=== PATIENT | male | born 1970 | race Caucasian/White ===

== ENCOUNTER 2021-03-21 08:53 | Emergency (ER) | payer BC, SELFPAY ==
[2021-03-21 09:05] VITALS: BP 128/86; PULSE 72; RESP 18; TEMP 37.3; O2SAT 96; BMI 28.0
--- NOTE | 2021-03-21 09:35 | ED_ITS ---
HPI - General Adult General Chief complaint: General Medical Stated complaint: ?inf on face Time Seen by Provider: 03/21/21 09:33 Source: patient Mode of arrival: ambulatory Limitations: no limitations History of Present Illness HPI narrative: 50-year-old male came in for evaluation of possible facial cellulitis. Patient was seen and evaluated at an Urgent Care was sent to the ED for possible facial infection, patient has no dental complaints, no sinus patient, patient was complaining of fever and chills last night. Related Data Previous Rx's Medication Instructions Recorded cephalexin 750 mg capsule (Keflex) 500 mg PO BID #14 cap 03/21/21 sulfamethoxazole 800 1 tab PO BID #14 tab 03/21/21 mg-trimethoprim 160 mg tablet (Bactrim DS) Allergies Allergy/AdvReac Type Severity Reaction Status Date / Time doxycycline Allergy Rash Verified 03/21/21 09:36 Review of Systems Review of Systems: all other systems are reviewed and are negative Constitutional: Reports as per HPI and Reports no additional constitutional complaints Eyes: Reports as per HPI and Reports no additional eye complaints Reports system reviewed and no additional complaints, except as documented Cardiovascular: Reports as per HPI and Reports no additional cardiovascular complaints Respiratory: Reports as per HPI and Reports no additional respiratory complaints Gastrointestinal: Reports as per HPI and Reports no additional gastrointestinal complaints Genitourinary: Reports no additional female genitourinary complaints Musculoskeletal: Reports no additional musculoskeletal complaints Skin/Breast: Reports system reviewed and no additional complaints, except as docu Psychiatric: Reports no additional psychiatric complaints Endocrine: Reports no additional endocrine complaints Hematologic/Lymphatic: Reports no additional hematologic/lymphatic complaints Allergic/Immunologic: Reports no additional allergic/immunologic complaints Reports system reviewed and no additional complaints, except as documented and Reports Abnormal speech present FOR[facility] Past Medical History Medical History (Updated 03/21/21 @ 09:38 by Eloy Madrigal MD) No known health problems Social History Social History Advance Directives: No Advance Directives Information Provided: No Physical Exam Vital Signs: Vital Signs: Last Vital Signs Temp 99.2 F 03/21/21 09:05 Pulse 72 03/21/21 09:05 Resp 18 03/21/21 09:05 BP 128/86 03/21/21 09:05 Pulse Ox 96 03/21/21 09:05 Body Mass Index 28.0 vital signs have been reviewed as appeared to be correct. Blood pressure normal. Heart rate normal. Respiration rate normal. Temperature normal. Oxygen saturation normal. Appearance: Alert. Oriented X3. No acute distress. Head: Normal external exam. Normocephalic. Atraumatic. No Ott signs noted. No raccoon eyes noted Eyes: PERRLA. EOMI. Conjunctiva and sclera normal. Eyelids normal. ENT: TM's Normal. Pharynx normal. Uvula midline. Moist mucous membranes. No trismus noted. No drooling noted. No muffled voice noted. Neck: Normal inspection. Neck supple. FROM. No adenopathy. Thyroid Normal. No meningeal signs. No neck mass noted. CVS: Normal heart rate and rhythm. Heart sound normal. No murmurs noted. Pulses normal throughout. Respiratory: No respiratory distress. Painless inspiration. Breath sounds normal. No wheezes/rales/rhonchi noted. Chest nontender. No accessory muscle usage noted or decreased air movement noted. Abdomen: Soft and nontender. Bowel sounds normal in all 4 quadrants. No distention noted. No organomegaly noted. No visible injury noted. Back: No CVA tenderness. Full range of motion noted. Skin: butter fly area of redness, hotness, tenderness including that to cheeks, and the nose. No fluctuation, no dental infection or abscess, no sinus tenderness on percussion. Extremities: No lower extremity edema. Extremities exhibit normal range of mot ion. Extremities nontender. Neuro: Oriented X 3. Cranial nerve exam: II-XII are grossly intact No motor deficit. No sensory deficit. Reflexes normal. Course Course Course Narrative: Mild facial cellulitis. Will start the patient on Keflex / Bactrim. follow-up in 2 days. Discharge Plan Discharge Clinical Impression: Cellulitis of face Patient Disposition: Home, Self-Care Instructions: Cellulitis (ED) Additional Instructions: return to the emergency department in 2 days for wound check. Prescriptions: New cephalexin [Keflex] 750 mg capsule 500 mg PO BID Qty: 14 RF: 0 sulfamethoxazole-trimethoprim [Bactrim DS] 800-160 mg tablet 1 tab PO BID Qty: 14 RF: 0
[2021-03-21] MEDS: cephALEXin 500 MG CAPSULE PO (09:44)
[2021-03-21] MEDS: Sulfamethox/Trimeth 800/160 TABLET 1 TAB PO (09:44)
== END 2021-03-21 10:24 | disposition home or self-care (01) ==
PROVIDERS: Emergency Provider Emergency Medicine
DX: L03.211 Cellulitis of face (principal)
CPT/HCPCS: 99283